=== PATIENT | male | born 1965 | race Caucasian/White ===

== ENCOUNTER 2016-07-01 19:54 | Inpatient (IN) | payer MEDICAID ==
[~2016-07-01] VITALS: Ht 180.3 cm; Wt 125.0 kg
[~2016-07-01 19:54] MED LIST: ADVAIR HFA [SP]12 GM INH; AMBIEN10 MG PO; ATIVAN1 MG PO; CRESTOR20 MG PO; FENOGLIDE40 MG PO; GLUCOPHAGE500 MG; HUMALOG 30100 UNITS/ SC; HYDROCHLOROTHIA25 MG PO; IPRAT-ALBUT 0.5-3 ML UPD; LISINOPRIL-HCTZ1 T13 PO; METFORMIN HCL500 M1 PO; NAPROSYN500 MG PO; NICODERM C1 PATCH .1 TRANSDERM; PREDNISONE20 MG PO; PRINIVIL20 MG PO; STERAPRED 5MG 125 MG PO; SYMBICORT 16010.2 GM INH; TAMIFLU75 MG PO; TRICOR48 MG PO; TUDORZA PRESS400 MCG INH; VENTOLIN HFA18 GM INH; ZOLOFT100 MG PO
[2016-07-01 20:37] LABS: BASOPHILS 0.5 % (0.0-2.0); EOSINOPHILS 5.4 % (0-7); HEMATOCRIT 46.8 % (42.0-54.0); HEMOGLOBIN 15.8 g/dL (13.5-17.5); IMMATURE GRANULOCYTES 0.3 % (0-5); LYMPHOCYTES 28.1 % (15-50); MCH 34.7 pg (26.0-34.0); MCHC 33.8 g/dL (31.0-37.0); MCV 102.9 fL (80.0-100.0); MONOCYTES 8.2 % (2-11); NEUTROPHILS 57.5 % (40-80); PLATELET COUNT 220 10x3/uL (130-400); RBC 4.55 10x6/uL (4.20-6.10); WBC 7.8 10x3/uL (4.8-10.8)
[2016-07-01 20:51] LABS: ALBUMIN 3.6 g/dL (3.4-5.0); ALKALINE PHOSPHATASE 70 U/L (46-116); ALT (SGPT) 35 U/L (10-68); BILIRUBIN - TOTAL 0.24 mg/dL (0.2-1.3); CALC OSMOLALITY 277 mosm/kg (275-300); CALCIUM 9.1 mg/dL (8.5-10.1); CARBON DIOXIDE 27.4 mmol/L (21.0-32.0); CHLORIDE - SERUM 101 mmol/L (98-107); CREATININE - SERUM 0.8 mg/dL (0.6-1.3); GLUCOSE 133 mg/dL (74-106); PROTEIN - SERUM 6.8 g/dL (6.4-8.2); SODIUM 139 mmol/L (136-145); UREA NITROGEN 6 mg/dL (7-18); eGFR NON AFRICAN AMERICAN > 90 mL/min (90-120)
[2016-07-01 20:58] LABS: CREATINE KINASE 85 UL (21-232); PRO BNP 63 pg/mL (0-125)
--- NOTE | 2016-07-02 01:20 | NUR ---
RECEIVED PT TO ROOM 2111 FROM ER WITH BIPAP ON HAVING DYSPNEA RT WITH PT AT THIS TIME SKIN W/D COLOR WNL SALINE LOCK INTAct TO LAC WITH 18 GA IV CATHETER SITE FREE FROM REDNESS OR EDEMA OCCLUSIVE DRSG INTACT WIILLCONTINUE TO MONITOR
[2016-07-02 01:47] VITALS: BMI 38.8
[2016-07-02 04:00] VITALS: BP 124/90
--- NOTE | 2016-07-02 07:00 | NUR ---
Pt. was received at the beginning of this shift in bed with eyes closed and bi-pap on. Stable condition observed. Left forearm IV patent with 0.9% NS infusing via pump at 100ml's/hr. Call light in reach. Will be monitoring him and assisting prn with adl's. No distress found.
[2016-07-02 08:00] VITALS: BP 151/97
[2016-07-02 12:00] VITALS: BP 137/96; BP 153/112
[2016-07-02 12:45] VITALS: Ht 180.3 cm; Wt 125.0 kg
[2016-07-02 16:00] VITALS: BP 145/89
--- NOTE | 2016-07-02 17:17 | NUR ---
Patient Name: LEOBARDO MEJIA Admission Status: Elective Accout number: [id number] Admission Date: 07-01-2016 : 1965 Admission Diagnosis: Attending: DIANE Current LOS: 1 Anticipated DC Date: Planned Disposition: Home Primary Insurance: MEDICAID [place] Discharge Planning Comments: * Is the patient Alert and Oriented? Yes 0 * How many steps to enter\\exit or inside your home? 1 0 * PCP DR. LIBERTAD GARRISON [facility] [facility] 0 * Pharmacy BUDGET 0 * Preadmission Environment Home with Family 0 * ADLs Independent 0 * Equipment Nebulizer Oxygen 0 * Other Equipment HOME AND PORTABLE OXYGEN [facility] - MEDICAL EQUIPMENT PROVIDER 0 * List name and contact numbers for known caregivers / representatives who currently or will assist patient after discharge: NIR MEJIA, SPOUSE, 0 * Community resources currently utilized None 0 * Please name any agencies selected above. NONE 0 * Additional services required to return to the preadmission environment? No 0 * Can the patient safely return to the preadmission environment? Yes 0 * Has this patient been hospitalized within the prior 30 days at any hospital? No 0 CM RECEIVED CALL FROM PT'S REQUESTING CM HAVE THE DOCTOR ORDER HOME HEALTH PT NEEDS HELP CLEANING THE HOUSE AND DOING THE LAUNDRY. CM EXPLAINED PURPOSE OF HOME HEALTH SERVICES AND INFORMED SPOUSE THAT CM WOULD MEET WITH PT TODAY. CM MET WITH PT IN ROOM TO DISCUSS DISCHARGE PLANNING AND NEEDS. PT REPORTS LIVING AT HOME INDEPENDENTLY WITH HIS SPOUSE. PT HAS HOME AND [place] OXYGEN WELL A NEBULIZER FROM [facility] AND DIABETIC SHOES FROM [employer]. PT HAS NO OUTSIDE SERVICES ASSISTING IN THE HOME. CM DISCUSSED AVAILABILITY OF HOME HEALTH, REHAB SERVICES AND MEDICAL EQUIPMENT. PT ASKED ABOUT HOME HEALTH FOR SEASONAL DRIVER SERVICES. CM EXPLAINED SKILLED CARE PROVIDED BY HOME HEALTH WELL THE POSSIBILITY OF AN AIDE TO ASSIST PT WITH BATHING ONCE WEEKLY. PT REPORTS HE IS ABLE TO MANAGE HIS OWN MEDICATIONS, DOES NOT NEED PHYSICAL THERAPY AND CAN BATH HIMSELF. PT REPORTS HE HAD PERSONAL CARE WITH "[facility]" BUT HIS PRIMARY DOCTOR WOULD NOT SIGN FOR IT ANY LONGER. CM EXPLAINED THAT PT WOULD REQUIRE A PRIMARY CARE DOCTOR THAT WOULD CERTIFY THE NEED FOR PERSONAL CARE FOR IT TO BE PROVIDED BY MEDICAID. PT WILL ATTEMPT TO FIND ANOTHER DOCTOR, HE HAS ALSO BEEN FIRED BY DR. RECINOS IN [place]. PT REPORTS HIS SPOUSE WILL PICK HIM UP FOR DISCHARGE HOME. PT PLANS TO DISCHARGE HOME WITH SPOUSE, DENIES NEED FOR HOME HEALTH, WANTS HOME PERSONAL CARE BUT HIS PRIMARY DOCTOR WILL NOT SIGN ORDER TO CERTIFY NEED FOR THE SERVICE. CM TO FOLLOW AND ASSIST NEEDED. Line Construction Superintendent: Javan Ro
--- NOTE | 2016-07-02 17:44 | NUR ---
Pt. has had an uneventful day. Pt. up ad ben to bathroom. No signs of any discomfort or distress. Continuing to observe.
--- NOTE | 2016-07-02 19:35 | NUR ---
RECEIVED REPORT, PT HAS BIPAP ON, IV IS OUT, ASNANSGI-90-UJ, DENIES ANY NEEDS, CALL LIGHT IN REACH, BED IS LOW, SRX2, WILL CONTINUE TO MONITOR
[2016-07-02 21:01] VITALS: BP 126/74
--- NOTE | 2016-07-02 23:59 | NUR ---
NO CHANGES NOTED IN ASSESSMENT. NO NEEDS VOICED. CALL LIGHT WITHIN REACH. WILL CONT TO MONITOR.
[2016-07-03 01:01] VITALS: BP 122/65
--- NOTE | 2016-07-03 04:29 | NUR ---
ASSESSMENT COMPLETE, CALL LIGHT IN REACH, BED IS LOW, SRX2
[2016-07-03 04:57] VITALS: BP 147/88
[2016-07-03 05:15] LABS: BASOPHILS 0 % (0.0-2.0); EOSINOPHILS 0 % (0-7); HEMATOCRIT 46.8 % (42.0-54.0); HEMOGLOBIN 15.8 g/dL (13.5-17.5); IMMATURE GRANULOCYTES 0.4 % (0-5); LYMPHOCYTES 4.9 % (15-50); MCH 35.1 pg (26.0-34.0); MCHC 33.8 g/dL (31.0-37.0); NEUTROPHILS 91.7 % (40-80); PLATELET COUNT 234 10x3/uL (130-400); RDW 12.8 % (11.5-14.5); WBC 14.1 10x3/uL (4.8-10.8)
[2016-07-03 05:33] LABS: CALCIUM 8.9 mg/dL (8.5-10.1); CARBON DIOXIDE 30.2 mmol/L (21.0-32.0); CHLORIDE - SERUM 99 mmol/L (98-107); CREATININE - SERUM 0.8 mg/dL (0.6-1.3); POTASSIUM - SERUM 4.2 mmol/L (3.5-5.1); SODIUM 136 mmol/L (136-145); eGFR NON AFRICAN AMERICAN > 90 mL/min (90-120)
[2016-07-03 05:34] LABS: CALC OSMOLALITY 278 mosm/kg (275-300); GLUCOSE 204 mg/dL (74-106); UREA NITROGEN 15 mg/dL (7-18)
[2016-07-03 08:06] VITALS: BP 141/86
[2016-07-03 12:00] VITALS: BP 130/84
[2016-07-03 15:33] VITALS: BP 132/85
--- NOTE | 2016-07-03 15:38 | NUR ---
GLUCOSE CHECKED AND READING 160 PT REFUSED INSULIN WILL MONITOR
--- NOTE | 2016-07-03 15:42 | NUR ---
PT LAYING IN BED NO DISTRESS OBSERVED CALL LIGHT IN REACH SR X2 GLUCOSE LEVELS CHECKED AND PT REFUSED INSULIN READING 160 RESPERATION EVEN AND UNLBOARED ON BIPAP WILL MONITOR
--- NOTE | 2016-07-03 17:08 | NUR ---
PT LAYING IN BED NO DISTRESS OBSERVED BIPAP ON. BED LOW AND LOCKED CALL LIGHT IN REACH SRX2 WILL MONITOR
--- NOTE | 2016-07-03 19:30 | NUR ---
RECEIVED PT SITTING UP IN BED WATCHING TV BIPAP ON DENIES ANY NEEDS OR DISCOMFORT AT THIS TIME WILL CONTINUE TO MONITOR
[2016-07-03 20:00] VITALS: BP 146/84; BP 151/91
--- NOTE | 2016-07-03 22:33 | NUR ---
FSBS 281 HUMALOG 10 UNITS GIVEN SQ LT ARM
[2016-07-04] VITALS: BP 111/63
[2016-07-04 04:00] VITALS: BP 148/96
[2016-07-04 05:33] LABS: BASOPHILS 0 % (0.0-2.0); EOSINOPHILS 0 % (0-7); HEMATOCRIT 45.6 % (42.0-54.0); HEMOGLOBIN 14.9 g/dL (13.5-17.5); IMMATURE GRANULOCYTES 0.3 % (0-5); LYMPHOCYTES 5.9 % (15-50); MCHC 32.7 g/dL (31.0-37.0); MCV 104.1 fL (80.0-100.0); MEAN PLATELET VOLUME 10.4 fL (7.4-10.4); MONOCYTES 5.1 % (2-11); NEUTROPHILS 88.7 % (40-80); PLATELET COUNT 239 10x3/uL (130-400); RBC 4.38 10x6/uL (4.20-6.10); RDW 12.6 % (11.5-14.5); WBC 13.6 10x3/uL (4.8-10.8)
[2016-07-04 05:48] LABS: CALC OSMOLALITY 276 mosm/kg (275-300); CALCIUM 9.3 mg/dL (8.5-10.1); CARBON DIOXIDE 29.8 mmol/L (21.0-32.0); CHLORIDE - SERUM 97 mmol/L (98-107); CREATININE - SERUM 0.8 mg/dL (0.6-1.3); GLUCOSE 206 mg/dL (74-106); POTASSIUM - SERUM 4.4 mmol/L (3.5-5.1); SODIUM 135 mmol/L (136-145); UREA NITROGEN 16 mg/dL (7-18); eGFR NON AFRICAN AMERICAN > 90 mL/min (90-120)
--- NOTE | 2016-07-04 06:05 | NUR ---
FSBS 206 PER LAB HUMALOG 8 UNITS GIVEN SQ LT ARM
[2016-07-04 07:00] VITALS: BP 147/87
[2016-07-04 11:56] VITALS: BP 144/93
[2016-07-04 16:00] VITALS: BP 130/82
--- NOTE | 2016-07-04 16:35 | NUR ---
PT SITTING UP IN BED AND AMBULATING IN HALLS WITH NO O2 ON PT RETURNS TO ROOM AND PUTS BIPAP ON RESPERATIONS ARE EVEN AND UNLABORED WITH NO DISTRESS OBSERVED CALL LIGHT IN REACH SRX2 BED LOW AND LOCKED WILL MONITOR
[2016-07-04 20:00] VITALS: BP 148/91
--- NOTE | 2016-07-04 20:49 | NUR ---
REC'D.AMB. IN HALLWAY O2 OFF SATS 98%.NO RESP. DIFFICULTY OBSERVED. WILL CONTINUE TO MONITOR FOR ANY CHGES. IN RESP. STATUS AND FOLLOW CURRENT PLAN OF CARE.
[2016-07-05] VITALS: BP 134/91
--- NOTE | 2016-07-05 00:22 | NUR ---
ACCOUNTING ASSISTANT AT BEDSIDE FOR VS. NEEDS ADDRESSED, CALL LIGHT IN REACH. WILL CONT TO MONITOR.
[2016-07-05 04:00] VITALS: BP 137/80
[2016-07-05 05:05] LABS: BASOPHILS 0 % (0.0-2.0); EOSINOPHILS 0 % (0-7); HEMATOCRIT 46.7 % (42.0-54.0); HEMOGLOBIN 15.6 g/dL (13.5-17.5); IMMATURE GRANULOCYTES 0.4 % (0-5); MCH 34.4 pg (26.0-34.0); MCHC 33.4 g/dL (31.0-37.0); MCV 103.1 fL (80.0-100.0); MEAN PLATELET VOLUME 10.5 fL (7.4-10.4); MONOCYTES 6.9 % (2-11); NEUTROPHILS 84.7 % (40-80); PLATELET COUNT 255 10x3/uL (130-400); RBC 4.53 10x6/uL (4.20-6.10); RDW 12.5 % (11.5-14.5); WBC 11.8 10x3/uL (4.8-10.8)
[2016-07-05 05:14] LABS: CALC OSMOLALITY 277 mosm/kg (275-300); CALCIUM 9.6 mg/dL (8.5-10.1); CARBON DIOXIDE 31.6 mmol/L (21.0-32.0); CHLORIDE - SERUM 96 mmol/L (98-107); CREATININE - SERUM 0.7 mg/dL (0.6-1.3); GLUCOSE 170 mg/dL (74-106); POTASSIUM - SERUM 4.8 mmol/L (3.5-5.1); SODIUM 136 mmol/L (136-145); UREA NITROGEN 18 mg/dL (7-18); eGFR NON AFRICAN AMERICAN > 90 mL/min (90-120)
--- NOTE | 2016-07-05 07:34 | NUR ---
RECEIVED PT REPORT. NO OTHER NEEDS AT THIS TIME. WILL CONTINUE TO MONITOR.
[2016-07-05 07:42] VITALS: BP 135/89
[2016-07-05] MEDS ORDERED: LEVAQUIN750 MG PO (08:13)
[2016-07-05] MEDS ORDERED: SINGULAIR10 MG PO (08:13)
[2016-07-05] MEDS ORDERED: MEDROL DOSE PACK4 MG PO (08:14)
--- NOTE | 2016-07-05 10:11 | NUR ---
Patient Name: LEOBARDO MEJIA Encounter No: [id number] : 1965 Primary Insurance: MEDICAID [facility] DC Date: 07-05-2016 Planned Disposition: Home with Home Health External Planned Provider: [facility] DCP follow-up note: CM RECEIVED DISCHARGE ORDER WITH HOME HEALTH ORDER. CM MET WITH PT IN ROOM, PT IS GLAD TO HAVE HOME HEALTH AND CALLED HIS ON THE PHONE TO SPEAK TO CM . PT'S SPOUSE ASKED FOR "[facility]" FOR HOME HEALTH. CM EXPLAINED THAT SHE WAS REFERRING TO A PERSONAL CARE AGENCY AND NOT HOME HEALTH, CM DISCUSSED DIFFERENCE BETWEEN HOME HEALTH AND PERSONAL CARE. PT AND SPOUSE REQUESTED [facility] FOR HOME HEALTH SERVICES AND WILL ACCEPT IF HE QUALIFIES. PT SIGNED CHOICE LETTER. PT REPORTS HAVING A FRIEND TO PICK HIM UP AT ABOUT NOON FOR TRANSPORT HOME TODAY. PT DENIES FURTHER DISCHARGE NEEDS. CM CALLED [facility], , SPOKE TO DARBY WHO WILL CONTACT PT'S PRIMARY CARE DOCTOR TO SEE IF PCP WILL SIGN ORDERS FOR HEALTH AND ADMIT PT FOR HOME HEALTH IF APPROPRIATE. CM FAXED HOME HEALTH REFERRAL AND DISCHARGE INFORMATION TO [facility] AT [phone]. Javan Ro, CASE MANAGEMENT
--- NOTE | 2016-07-30 13:49 | CN ---
PATIENT NAME:LEOBARDO MEJIA MEDICAL RECORD: [id number] : [birth year] LOCATION:D. D.2112 ADMIT DATE: 07/01/16 ACCOUNT: [id number] CONSULTING PHYSICIAN: ANNA SPEARS MD REFERRING PHYSICIAN: GUILLERMINA SPEARS MD DATE OF CONSULTATION: 07/02/2016 CONSULT REQUESTING PHYSICIAN: Guillermina Spears MD. REASON FOR CONSULTATION: Acute exacerbation of chronic obstructive pulmonary disease, acute hypoxic respiratory failure. HISTORY OF PRESENT ILLNESS: Mr. Mejia is a 50-year-old gentleman who has sinusitis a few days ago. He saw his government affairs specialist in [place], he prescribed him some antibiotic, but according to the patient, he was not getting any better, he has worsening shortness of breath and start wheezing. The patient came into the ER last night, having generalized body aches and pain, his cough not much yellow colored sputum production. He was also persistently wheezing. REVIEW OF SYSTEMS: CONSTITUTIONAL: He has a fever and chills. HEENT: He has sinus congestion. RESPIRATORY: As in history of present illness. CARDIOVASCULAR: No chest pain. He does have some palpitation. GASTROINTESTINAL: Negative. GENITOURINARY: Negative. Other review of the systems is negative. PAST MEDICAL HISTORY: 1. COPD. He is seeing a government affairs specialist at [facility]. 2. Hypertension. 3. Associated asthma. 4. Diabetes mellitus. 5. History of seizure disorder. PAST SURGICAL HISTORY: 1. He had T&A. 2. Left ankle fusion surgery. ALLERGIES: HE IS ALLERGIC TO AMITRIPTYLINE, ANTABUSE, HALDOL. PRESENT MEDICATIONS: On A+ [employer] is reviewed. PERSONAL AND SOCIAL HISTORY: The patient still continues to smoke almost a pack a day. He is a nondrinker. FAMILY HISTORY: Significant for cardiovascular disease and cancer. PHYSICAL EXAMINATION: GENERAL: Now, the patient is lying comfortably. He is not in acute distress. He is wearing BiPAP machine. VITAL SIGNS: The blood pressure is 153/112, respiration is 18, temperature 98.2, SPO2 is 98% on 40% BiPAP. HEENT: Conjunctivae are pink. Sclerae nonicteric. CONSULT REPORT [id number] LEOBARDO MEJIA NECK: Supple. No JVD. CHEST: Excursion is minimal on both sides. There are wheeze on forceful expiration. HEART: Rhythm regular, normal sound, no murmur. ABDOMEN: Soft, bowel sounds present. No hepatosplenomegaly. RECTAL: Deferred. EXTREMITIES: No cyanosis, no clubbing, no pedal edema. SKIN: Warm, normal turgor. CENTRAL NERVOUS SYSTEM: The patient is awake and alert. There is no obvious cranial nerve abnormality. The gait was not tested. CHEST RADIOGRAPH: Hyperinflation, there are no acute infiltrates. LABORATORY DATA: CBC: The WBC is 7.8, hemoglobin 15.8, hematocrit 46.8, the platelet count is 220. Chemistry: Sodium 139, potassium 4, BUN is 6, creatinine 0.6. ABG: The pH is 7.37, pCO2 of 47.3, the pO2 is 73, bicarbonate 27.9. IMPRESSION: 1. Acute exacerbation of chronic obstructive pulmonary disease. 2. Tracheobronchitis. 3. Acute hypoxic respiratory failure. 4. Tobacco dependence syndrome. 5. Hypertension. 6. Diabetes mellitus type 2. 7. Acute sinusitis. RECOMMENDATION: Continue Levaquin. I will adjust the dose of methylprednisolone, start Brovana and budesonide nebulizer, albuterol/ipratropium nebulizer. Start on Singulair 10 mg a day. The patient has workup for his COPD by his government affairs specialist in [place]. Dr. Spears, once again thank you for involving me in the care of Mr. Mejia. TRANSINT:[id number] Voice Confirmation ID: [id number] DOCUMENT ID: [id number] ANNA SPEARS MD at 1349 CC: GUILLERMINA SPEARS MD [id number] DICTATION DATE: 07/02/161521 HAND BINDER STRIPPER: 07/02/162057 DIS IN 07/05/16 [address] [place] [address]
== END 2016-07-05 10:25 | disposition home health service (06) | DRG 189 ==
LOC: D.ER 19:54 → D.M2 22:44
PROVIDERS: Emergency Medicine; Internal Medicine Pulmonary Disease; ADMIT Family Medicine
PROC: 5A09457 Assistance with Respiratory Ventilation, 24-96 Consecutive Hours, Continuous Positive Airway Pressure (ICD-10-PCS; principal; 2016-07-01)
DX: J96.01 Acute respiratory failure with hypoxia (principal); J44.1 Chronic obstructive pulmonary disease with (acute) exacerbation; F17.200 Nicotine dependence, unspecified, uncomplicated; J45.909 Unspecified asthma, uncomplicated; E11.9 Type 2 diabetes mellitus without complications; Z79.4 Long term (current) use of insulin; G40.909 Epilepsy, unspecified, not intractable, without status epilepticus; I10 Essential (primary) hypertension; J32.9 Chronic sinusitis, unspecified; F41.9 Anxiety disorder, unspecified

== ENCOUNTER 2018-02-12 14:24 | Inpatient (IN) | payer MEDICAID ==
[~2018-02-12] VITALS: Ht 180.3 cm; Wt 129.5 kg
--- NOTE | ~2018-02-12 | MORECARE ---
CASE MANAGEMENT DISCHARGE SUMMARY PATIENT: LEOBARDO MEJIA UNIT: [id number] ADM DATE: 02/12/18 AGE: 52 : [birth year] SEX: M ROOM/BED: D.2236 AUTHOR: SHERIE RUELAS PHYSICIAN: REFERRING PHYSICIAN: LNEI MANSFIELD MD DATE OF SERVICE: 02/17/18 Discharge Plan Patient Name: LEOBARDO MEJIA Facility: [facility] : 1965 Planned Disposition: Home Anticipated Discharge Date: Discharge Date: 02/16/2018 Expected LOS: 0 Initial Reviewer: [email or web address] Initial Review Date: 02/14/2018 Generated: 02/17/18 5:57 pm Comments DCP- Discharge Planning Updated by [email or web address]: Adrienne Mariano on 02/16/18 11:[address] Received orders for discharge. The patient has already left the room. Patient's nurse Kimberly said he has been gone awhile and states "I think he just left without telling anyone." I called [phone] and left a message that he [place] [facility] [address] His nurse has left a message as well. DCP- Discharge Planning Updated by [email or web address]: Adrienne Mariano on 02/14/18 9:[address] Patient Name: LEOBARDO MEJIA Admission Status: ER Accout number: [id number] Admission Date: 02-12-2018 : 1965 Admission Diagnosis: Attending: LENI MANSFIELD Current LOS: 2 Anticipated DC Date: Planned Disposition: Home Primary Insurance: MEDICAID [place] Discharge Planning Comments: CM met with patient to discuss discharge planning, he is alone in the room. States he is independent with all ADL's and IADL's. He states he lives with his that has been diagnosed recently with stage 3 cancer. States they have a appraiser personal property from [facility] [employer] that is supposed to come in 28 hours a month. States they are not coming that often. I called [facility] and spoke with Cesilia per the patient's request. She states that he and the are getting maximum amount allowed, which is 14 hours per person. Patient states that one of the aides will pick him up at discharge. I informed him of Home health services available and he declines at this time. CM will continue to follow and assist with discharge planning/needs. Heel Nailing Machine Operator: Adrienne Mariano DCPIA - Discharge Planning Initial Assessment Updated by [email or web address]: Adrienne Mariano on 02/14/18 10:34 am * Is the patient Alert and Oriented? Yes * How many steps to enter\\exit or inside your home? Ramp/0 * PCP [facility] * Pharmacy [facility] [address] * Preadmission Environment Home with Family * ADLs Independent * Equipment Nebulizer Oxygen * Other Equipment Portable oxygen DME is [facility] * List name and contact numbers for known caregivers / representatives who currently or will assist patient after discharge: Daniella Mejia - - [phone] * Verbal permission to speak to the caregivers and representatives has been obtained from the patient. Yes * Community resources currently utilized [facility] * Please name any agencies selected above. [facility] * Additional services required to return to the preadmission environment? No * Can the patient safely return to the preadmission environment? Yes * Has this patient been hospitalized within the prior 30 days at any hospital? No Last DP export: 02/16/18 11:33 Patient Name: ROBERTOLEOBARDO Page [id number] at 1657 All edits/amendments must be made on the electronic document DICTATION DATE: 02/17/181655 LENS EDGER: TIM 02/17/181655 RPT#: [id number] DC DATE:02/16/18 STATUS: DIS IN [facility] [address] [place] [address] END OF REPORT
[~2018-02-12 14:24] MED LIST changes: +LEVAQUIN750 MG PO; +MEDROL DOSE PACK4 MG PO; +SINGULAIR10 MG PO
[2018-02-12] MEDS ORDERED: BUSPIRONE HCL30 MG PO (14:35)
[2018-02-12] MEDS ORDERED: COMBIVENT RESPIM4 GM INH (14:36)
[2018-02-12 15:11] LABS: BASOPHILS 0.5 % (0-2); EOSINOPHILS 3.7 % (0-7); HEMATOCRIT 53.4 % (42.0-54.0); HEMOGLOBIN 18.7 g/dL (13.5-17.5); IMMATURE GRANULOCYTES 0.2 % (0-5); LYMPHOCYTES 20.3 % (15-50); MCH 36.5 pg (26.0-34.0); MCV 104.3 fL (80.0-100.0); MEAN PLATELET VOLUME 10.3 fL (7.4-10.4); MONOCYTES 10.2 % (2-11); NEUTROPHILS 65.1 % (40-80); PLATELET COUNT 217 10x3/uL (130-400); RBC 5.12 10x6/uL (4.20-6.10); WBC 8.3 10x3/uL (4.8-10.8)
[2018-02-12 15:17] LABS: APTT 30.9 SECONDS (22.8-39.4); INR 0.99 (0.85-1.17); PROTIME 12.7 SECONDS (11.6-15.0)
[2018-02-12 15:18] LABS: D-DIMER-QUANTITATIVE < 0.27 ug/mLFEU (0.20-0.54)
[2018-02-12 16:02] LABS: ALBUMIN 3.5 g/dL (3.4-5.0); ALKALINE PHOSPHATASE 83 U/L (46-116); ALT (SGPT) 32 U/L (10-68); BILIRUBIN - TOTAL 0.34 mg/dL (0.2-1.3); CALC OSMOLALITY 278 mosm/kg (275-300); CALCIUM 9.3 mg/dL (8.5-10.1); CARBON DIOXIDE 26.7 mmol/L (21.0-32.0); CHLORIDE - SERUM 101 mmol/L (98-107); GLUCOSE 137 mg/dL (74-106); POTASSIUM - SERUM 4.4 mmol/L (3.5-5.1); PROTEIN - SERUM 6.7 g/dL (6.4-8.2); SODIUM 139 mmol/L (136-145); UREA NITROGEN 10 mg/dL (7-18); eGFR NON AFRICAN AMERICAN 84 mL/min (90-120)
[2018-02-12 16:14] LABS: CKMB 1.3 U/L (0.0-3.6); CREATINE KINASE 84 UL (21-232); PRO BNP 46 pg/mL (0-125)
[2018-02-12 16:18] LABS: TROPONIN-I < 0.017 ng/mL (0.000-0.060)
[2018-02-12] MEDS ORDERED: PROAIR INH (18:33)
[2018-02-12 18:58] VITALS: BP 129/79; Ht 180.3 cm; Wt 129.5 kg
[2018-02-13] VITALS: BP 11/74
[2018-02-13 06:04] LABS: BASOPHILS 0 % (0-2); EOSINOPHILS 0 % (0-7); HEMATOCRIT 51.9 % (42.0-54.0); HEMOGLOBIN 18.1 g/dL (13.5-17.5); IMMATURE GRANULOCYTES 0.1 % (0-5); LYMPHOCYTES 6.7 % (15-50); MCH 36.5 pg (26.0-34.0); MCHC 34.9 g/dL (31.0-37.0); MCV 104.6 fL (80.0-100.0); MEAN PLATELET VOLUME 10.6 fL (7.4-10.4); MONOCYTES 1.4 % (2-11); NEUTROPHILS 91.8 % (40-80); PLATELET COUNT 211 10x3/uL (130-400); RBC 4.96 10x6/uL (4.20-6.10); RDW 12.9 % (11.5-14.5); WBC 7.8 10x3/uL (4.8-10.8)
[2018-02-13 06:05] VITALS: BP 124/76
[2018-02-13 06:11] LABS: CALC OSMOLALITY 288 mosm/kg (275-300); CALCIUM 9.1 mg/dL (8.5-10.1); CARBON DIOXIDE 26.5 mmol/L (21.0-32.0); CHLORIDE - SERUM 100 mmol/L (98-107); CREATININE - SERUM 1.1 mg/dL (0.6-1.3); POTASSIUM - SERUM 4.6 mmol/L (3.5-5.1); SODIUM 137 mmol/L (136-145); UREA NITROGEN 11 mg/dL (7-18); eGFR NON AFRICAN AMERICAN 75 mL/min (90-120)
[2018-02-13 06:12] LABS: GLUCOSE 381 mg/dL (74-106)
[2018-02-13 08:38] VITALS: BP 151/100
[2018-02-13 12:50] VITALS: BP 158/94
[2018-02-13 16:34] VITALS: BP 140/91
[2018-02-13 21:01] VITALS: BP 126/84
[2018-02-14 05:52] VITALS: BP 126/91
[2018-02-14 05:58] LABS: BASOPHILS 0 % (0-2); EOSINOPHILS 0 % (0-7); HEMATOCRIT 48.3 % (42.0-54.0); HEMOGLOBIN 16.7 g/dL (13.5-17.5); IMMATURE GRANULOCYTES 0.3 % (0-5); LYMPHOCYTES 5.4 % (15-50); MCH 36.3 pg (26.0-34.0); MCHC 34.6 g/dL (31.0-37.0); MEAN PLATELET VOLUME 10.7 fL (7.4-10.4); NEUTROPHILS 91.3 % (40-80); PLATELET COUNT 233 10x3/uL (130-400)
[2018-02-14 06:16] LABS: WBC 10.9 10x3/uL (4.8-10.8)
[2018-02-14 06:35] LABS: CALCIUM 9.3 mg/dL (8.5-10.1); CARBON DIOXIDE 27.5 mmol/L (21.0-32.0); CHLORIDE - SERUM 101 mmol/L (98-107); POTASSIUM - SERUM 4.2 mmol/L (3.5-5.1); SODIUM 137 mmol/L (136-145)
[2018-02-14 06:37] LABS: CALC OSMOLALITY 285 mosm/kg (275-300); CREATININE - SERUM 0.8 mg/dL (0.6-1.3); GLUCOSE 295 mg/dL (74-106); UREA NITROGEN 15 mg/dL (7-18); eGFR NON AFRICAN AMERICAN > 90 mL/min (90-120)
[2018-02-14 09:44] VITALS: BP 163/93
[2018-02-14 14:44] VITALS: BP 121/85
[2018-02-14 21:20] VITALS: BP 145/91
[2018-02-15 05:00] LABS: BASOPHILS 0 % (0-2); EOSINOPHILS 0 % (0-7); HEMOGLOBIN 15.7 g/dL (13.5-17.5); IMMATURE GRANULOCYTES 0.3 % (0-5); LYMPHOCYTES 6.7 % (15-50); MCH 35.9 pg (26.0-34.0); MCHC 34.1 g/dL (31.0-37.0); MCV 105.3 fL (80.0-100.0); MEAN PLATELET VOLUME 10.8 fL (7.4-10.4); MONOCYTES 6.2 % (2-11); NEUTROPHILS 86.8 % (40-80); PLATELET COUNT 234 10x3/uL (130-400); RBC 4.37 10x6/uL (4.20-6.10); RDW 12.9 % (11.5-14.5); WBC 9.5 10x3/uL (4.8-10.8)
[2018-02-15 05:27] LABS: ALBUMIN 3.1 g/dL (3.4-5.0); ALKALINE PHOSPHATASE 61 U/L (46-116); ALT (SGPT) 21 U/L (10-68); BILIRUBIN - TOTAL 0.23 mg/dL (0.2-1.3); CALC OSMOLALITY 283 mosm/kg (275-300); CALCIUM 9.2 mg/dL (8.5-10.1); CARBON DIOXIDE 28.3 mmol/L (21.0-32.0); CHLORIDE - SERUM 101 mmol/L (98-107); CREATININE - SERUM 0.8 mg/dL (0.6-1.3); POTASSIUM - SERUM 4.1 mmol/L (3.5-5.1); PROTEIN - SERUM 6.2 g/dL (6.4-8.2); SODIUM 138 mmol/L (136-145); UREA NITROGEN 16 mg/dL (7-18); eGFR NON AFRICAN AMERICAN > 90 mL/min (90-120)
[2018-02-15 05:47] LABS: GLUCOSE 223 mg/dL (74-106)
[2018-02-15 06:26] VITALS: BP 119/62
[2018-02-15 09:19] VITALS: BP 147/95
[2018-02-15 10:22] LABS: IMMUNOGLOBULIN A 181 mg/dL (90-386); IMMUNOGLOBULIN G 498 mg/dL (700-1600)
[2018-02-15 11:36] VITALS: BP 166/95
[2018-02-15 15:30] VITALS: BP 137/89
[2018-02-15 20:00] VITALS: BP 129/82
[2018-02-16 05:03] LABS: BASOPHILS 0.1 % (0-2); EOSINOPHILS 0.2 % (0-7); HEMATOCRIT 46.8 % (42.0-54.0); IMMATURE GRANULOCYTES 0.6 % (0-5); LYMPHOCYTES 20.6 % (15-50); MCHC 34.2 g/dL (31.0-37.0); MCV 105.4 fL (80.0-100.0); MEAN PLATELET VOLUME 10.5 fL (7.4-10.4); MONOCYTES 11.2 % (2-11); NEUTROPHILS 67.3 % (40-80); PLATELET COUNT 207 10x3/uL (130-400); RBC 4.44 10x6/uL (4.20-6.10); RDW 12.9 % (11.5-14.5); WBC 8.9 10x3/uL (4.8-10.8)
[2018-02-16 05:18] LABS: CALC OSMOLALITY 280 mosm/kg (275-300); CARBON DIOXIDE 32.8 mmol/L (21.0-32.0); CHLORIDE - SERUM 99 mmol/L (98-107); CREATININE - SERUM 0.8 mg/dL (0.6-1.3); POTASSIUM - SERUM 4.1 mmol/L (3.5-5.1); SODIUM 137 mmol/L (136-145); UREA NITROGEN 20 mg/dL (7-18); eGFR NON AFRICAN AMERICAN > 90 mL/min (90-120)
[2018-02-16 05:26] LABS: GLUCOSE 164 mg/dL (74-106)
[2018-02-16 05:28] VITALS: BP 100/61
[2018-02-16 10:20] VITALS: BP 145/82
[2018-02-16] MEDS ORDERED: BENZONATATE200 MG PO (11:39)
[2018-02-16] MEDS ORDERED: KLONOPIN1 MG PO (11:39)
[2018-02-16] MEDS ORDERED: Nicoderm [PBKC] TRANSDERM (11:39)
[2018-02-16] MEDS ORDERED: PREDNISONE10 MG PO (11:52)
[2018-02-16] MEDS ORDERED: LEVAQUIN750 MG PO (11:52)
[2018-02-17 03:12] LABS: IMMUNOGLOBULIN E 248 IU/mL (0-100)
== END 2018-02-16 12:35 | disposition left against medical advice (07) | DRG 189 ==
LOC: D.ER 14:24 → D.MS 17:34
PROVIDERS: Emergency Medicine; Family Medicine; Internal Medicine Pulmonary Disease
DX: J96.01 Acute respiratory failure with hypoxia (principal); J44.1 Chronic obstructive pulmonary disease with (acute) exacerbation; E87.2 Acidosis; J44.0 Chronic obstructive pulmonary disease with (acute) lower respiratory infection; J20.9 Acute bronchitis, unspecified; I10 Essential (primary) hypertension; F41.9 Anxiety disorder, unspecified; E11.9 Type 2 diabetes mellitus without complications; E78.5 Hyperlipidemia, unspecified; G47.33 Obstructive sleep apnea (adult) (pediatric); Z91.19 Patient's noncompliance with other medical treatment and regimen; D75.1 Secondary polycythemia

== ENCOUNTER 2018-04-06 16:41 | Inpatient (IN) | payer MEDICAID ==
[~2018-04-06] VITALS: Ht 180.3 cm; Wt 101.3 kg
--- NOTE | ~2018-04-06 | CN ---
PATIENT NAME:LEOBARDO MEJIA MEDICAL RECORD: [id number] : [birth year] LOCATION:D.M2 D.2114 ADMIT DATE: 04/06/18 ACCOUNT: [id number] CONSULTING PHYSICIAN: ANNA SPEARS MD REFERRING PHYSICIAN: CLIFTON PRADO DO DATE OF CONSULTATION: 04/07/2018 CONSULT REQUESTING PHYSICIAN: Clifton Prado MD REASON FOR CONSULTATION: Acute exacerbation of chronic obstructive pulmonary disease. HISTORY OF PRESENT ILLNESS: Mr. Mejia is a 52-year-old gentleman, very well known to me from previous hospitalizations. The patient was following with a general utility worker at [place]. According to the patient, yesterday he woke up, he feels like he cannot breathe and he was like drowning. He was wheezing. He was coughing without much significant yellow color sputum production. Since yesterday, he is feeling a lot better and the patient wants to go home. REVIEW OF SYSTEMS: As in history of present illness. PAST MEDICAL HISTORY: 1. COPD. The patient is seeing a general utility worker at [facility]. 2. Hypertension. 3. Asthma and COPD overlap syndrome. 4. Diabetes mellitus. 5. History of seizure disorder. PAST SURGICAL HISTORY: 1. T&A. 2. Left knee fusion surgery. ALLERGIES: HE IS ALLERGIC TO AMITRIPTYLINE, ANTABUSE AND HALDOL. MEDICATIONS: UpOut is reviewed. PERSONAL AND SOCIAL HISTORY: Probably he still continues to smoke. He is a nondrinker. FAMILY HISTORY: Noncontributory. PHYSICAL EXAMINATION: GENERAL: Now, the patient is lying comfortably in bed. He is not in acute distress. VITAL SIGNS: The blood pressure is 165/96, pulse is 107, respirations 18, temperature 98.2, SPO2 is 98% on 4 liters nasal cannula. HEENT: Conjunctivae are pink. Sclerae are not icteric. NECK: Supple, no JVD. CHEST: The chest excursion is minimal on both sides. Wheeze on forceful expiration. HEART: Rhythm regular, normal sound, no murmur. ABDOMEN: Soft, bowel sounds present. No hepatosplenomegaly. RECTAL: Deferred. EXTREMITIES: No cyanosis, no clubbing, no pedal edema. CENTRAL NERVOUS SYSTEM: The patient is awake and alert. There are no obvious CONSULT REPORT [id number] LEOBARDO MEJIA cranial nerve abnormality. The gait was not tested. CHEST RADIOGRAPH: Hyperinflation, no acute infiltrate. WBC is 12.2. RECOMMENDATION: 1. Prednisone Dosepak. 2. Doxycycline. The patient was advised to continue his home nebulized medication and inhalers. He will follow up with his general utility worker at [facility]. Dr. Prado, thank you for involving me in the care of Mr. Mejia. TRANSINT:[id number] Voice Confirmation ID: [id number] DOCUMENT ID: [id number] ANNA SPEARS MD CC: [id number] DICTATION DATE: 04/07/18 1611 PBX TECHNICIAN: 04/07/18 2321 DIS IN 04/07/18 [facility] [address] [place] [address]
--- NOTE | ~2018-04-06 | DS ---
PATIENT:LEOBARDO MEJIA :[birth year] MEDICAL RECORD: [id number] DISCHARGE SUMMARY ADMISSION DATE: 04/06/18 DISCHARGE DATE: 04/07/18 ADMISSION DIAGNOSIS: Exacerbation of chronic obstructive pulmonary disease. DISCHARGE DIAGNOSIS: Exacerbation of chronic obstructive pulmonary disease. CONSULTS: Pulmonology, Dr. Alas. HOSPITAL COURSE: The patient was admitted through the Emergency Room with acute shortness of breath and previously had BiPAP at home, was noncompliant with it, and Medicaid quit covering it and was discontinued. He had frequent admissions for COPD exacerbations. He was hypoxic on admission, was started on BiPAP, improved, was also given Solu-Medrol and DuoNebs. Pulmonology was consulted, evaluated the patient and cleared the patient for discharge. Wrote discharge medications. The patient is discharged to home, agreed with discharge, anxious to go home. Discharged in stable and improved condition. PHYSICAL EXAMINATION: VITAL SIGNS ON DISCHARGE: Temperature 98.2, heart rate 95, respirations 18, blood pressure is 139/84, O2 sats 97%. GENERAL: Alert, oriented, no acute distress. HEART: Regular rate and rhythm. LUNGS: Clear, mildly prolonged expiratory phase. Breathing is nonlabored. ABDOMEN: Soft, obese, nontender. Bowel sounds positive. EXTREMITIES: Present times 4. NEUROLOGIC: Intact. DISCHARGE INSTRUCTIONS: The patient is instructed to follow up with his primary care physician or nurse practitioner. Follow up with his steel layer, Dr. Daily. Counseled on the importance of compliance and followup. See chart for further details. TRANSINT:[id number] Voice Confirmation ID: [id number] DOCUMENT ID: [id number] CRISTHIAN PRADO DO at 1045 CC: [id number] DICTATION DATE: 04/07/18 1634 BATTERY INSTALLER: 04/08/18 0706 DIS IN 04/07/18 [id number] [place] [address]
--- NOTE | ~2018-04-06 | HP ---
PATIENT: LEOBARDO MEJIA MEDICAL RECORD: [id number] ACCOUNT: [id number] LOCATION:[address] : [birth year] ADMISSION DATE: 04/06/18 PCP: ELLIOTT JONES [facility] HISTORY AND PHYSICAL EXAMINATION HISTORY OF PRESENT ILLNESS: A 52-year-old male presented to the Emergency Room with shortness of breath. The patient has a history of COPD. He has been on BiPAP in the past. His machine broke and Medicaid picked it up due to perceived noncompliance. His research manager is Dr. Daily. He is noncompliant with clinic followups. He is followed by a nurse practitioner at [facility]. Denies any fever or chills. He reports being short of breath times 1 day. He was given Solu-Medrol and DuoNeb en route, but he has still remained hypoxic upon arrival to the ER with recommended admission to unassigned medicine. PAST MEDICAL HISTORY: Significant for COPD, poor compliance. ALLERGIES: REPORTED AMITRIPTYLINE AND ABUSE HALDOL. CURRENT HOME MEDICATIONS: Listed as Klonopin and prednisone, BuSpar, Combivent inhaler, albuterol inhaler, fenofibrate, and metformin. PAST MEDICAL HISTORY: Reported as seizures, hypertension, COPD, depression, anxiety. REVIEW OF SYSTEMS: GENERAL: No acute change, weight, or appetite. HEENT: No cephalgia, visual changes, tinnitus, epistaxis, or dysphagia. CARDIOVASCULAR: Denies chest pain, denies palpitations. PULMONARY: Acute shortness of breath, feels significantly better this a.m. GASTROINTESTINAL: Denies hematemesis, hematochezia, or melena. GENITOURINARY: Denies dysuria. MUSCULOSKELETAL: No acute changes. ENDOCRINE: Denies polyuria, polydipsia, or polyphagia. PHYSICAL EXAMINATION: VITAL SIGNS: Temp 96.6, blood pressure 129/87, heart rate 92, respirations 20, O2 sats 98% with supplemental oxygen. HEENT: Normocephalic, atraumatic. Eyes: Pupils are equally round and reactive to light and accommodation. Extraocular muscles intact. Conjunctivae not injected. Ears: Canals patent, TMs are intact. Nose: Nares patent without drainage. Throat: No erythema, no exudates. NECK: Supple. No lymphadenopathy, no JVD. HEART: Regular rate and rhythm. No S3, S4, no rub. LUNGS: Clear to auscultation bilaterally, mildly prolonged expiratory phase. Breathing is nonlabored. ABDOMEN: Soft, obese, nontender. Bowel sounds all 4 quadrants. EXTREMITIES: Present times 4. NEUROLOGIC: No appreciable focal deficits. He is a somewhat limited historian. LABORATORY DATA: CBC: White count 12.2, within normal range upon arrival. He has had steroids likely a steroid reaction. Hemoglobin 14.9, hematocrit 43.6, platelets 263. Chemistry shows a sodium of 137, potassium 4.3, chloride 99, bicarbonate 26.8, BUN 13, creatinine 0.9, glucose 252. D-dimer 0.29. ABG: pH 7.4, pCO2 45, pO2 68, bicarbonate 28.2. Chest x-ray: No acute cardiopulmonary HISTORY AND PHYSICAL [id number] LEOBARDO MEJIA process. ASSESSMENT AND PLAN: Acute exacerbation of COPD. The patient had excellent improvement in symptoms with BiPAP. We will consult his research manager, Dr. Daily, supportive care. Discharge planning when cleared by pulmonology. We will resume his home medications. TRANSINT:[id number] Voice Confirmation ID: [id number] DOCUMENT ID: [id number] CRISTHIAN PRADO DO at 1007 CC: [id number] DICTATION DATE: 04/07/18803 JAVA J2EE ARCHITECT: 04/07/18 09 ADM IN [place] [address] [place] [id number]
[~2018-04-06 16:41] MED LIST changes: +BENZONATATE200 MG PO; +BUSPIRONE HCL30 MG PO; +COMBIVENT RESPIM4 GM INH; +KLONOPIN1 MG PO; +Nicoderm [PBKC] TRANSDERM; +PREDNISONE10 MG PO; +PROAIR INH
[2018-04-06 17:04] LABS: BASOPHILS 0.5 % (0-2); EOSINOPHILS 3.9 % (0-7); HEMATOCRIT 43.8 % (42.0-54.0); HEMOGLOBIN 15.5 g/dL (13.5-17.5); IMMATURE GRANULOCYTES 0.4 % (0-5); MCH 35.6 pg (26.0-34.0); MCHC 35.4 g/dL (31.0-37.0); MCV 100.7 fL (80.0-100.0); MEAN PLATELET VOLUME 10.3 fL (7.4-10.4); MONOCYTES 10.5 % (2-11); NEUTROPHILS 58.7 % (40-80); RBC 4.35 10x6/uL (4.20-6.10); RDW 12.5 % (11.5-14.5); WBC 11.3 10x3/uL (4.8-10.8)
[2018-04-06 17:06] LABS: PLATELET COUNT 256 10x3/uL (130-400)
[2018-04-06 17:11] VITALS: BP 120/089
[2018-04-06 17:27] LABS: ALKALINE PHOSPHATASE 59 U/L (46-116); ALT (SGPT) 37 U/L (10-68); BILIRUBIN - TOTAL 0.31 mg/dL (0.2-1.3); CALC OSMOLALITY 275 mosm/kg (275-300); CALCIUM 9.3 mg/dL (8.5-10.1); CARBON DIOXIDE 29.9 mmol/L (21.0-32.0); CHLORIDE - SERUM 97 mmol/L (98-107); CREATININE - SERUM 0.9 mg/dL (0.6-1.3); GLUCOSE 145 mg/dL (74-106); POTASSIUM - SERUM 3.9 mmol/L (3.5-5.1); PROTEIN - SERUM 7.6 g/dL (6.4-8.2); SODIUM 137 mmol/L (136-145); UREA NITROGEN 10 mg/dL (7-18); eGFR NON AFRICAN AMERICAN > 90 mL/min (90-120)
[2018-04-06 17:35] LABS: PRO BNP 22 pg/mL (0-125)
[2018-04-06 19:45] VITALS: BP 147/99
[2018-04-06 23:45] VITALS: BP 128/95
[2018-04-07 03:55] VITALS: BP 129/87
[2018-04-07 05:03] LABS: BASOPHILS 0.1 % (0-2); EOSINOPHILS 0.1 % (0-7); HEMATOCRIT 43.6 % (42.0-54.0); HEMOGLOBIN 14.9 g/dL (13.5-17.5); IMMATURE GRANULOCYTES 0.2 % (0-5); LYMPHOCYTES 5.2 % (15-50); MCH 34.7 pg (26.0-34.0); MCHC 34.2 g/dL (31.0-37.0); MCV 101.6 fL (80.0-100.0); MEAN PLATELET VOLUME 10.6 fL (7.4-10.4); MONOCYTES 1.6 % (2-11); NEUTROPHILS 92.8 % (40-80); PLATELET COUNT 263 10x3/uL (130-400); RBC 4.29 10x6/uL (4.20-6.10); RDW 12.6 % (11.5-14.5); WBC 12.2 10x3/uL (4.8-10.8)
[2018-04-07 05:29] LABS: CALC OSMOLALITY 282 mosm/kg (275-300); CALCIUM 9.6 mg/dL (8.5-10.1); CARBON DIOXIDE 26.8 mmol/L (21.0-32.0); CHLORIDE - SERUM 99 mmol/L (98-107); CREATININE - SERUM 0.9 mg/dL (0.6-1.3); GLUCOSE 252 mg/dL (74-106); POTASSIUM - SERUM 4.3 mmol/L (3.5-5.1); SODIUM 137 mmol/L (136-145); UREA NITROGEN 13 mg/dL (7-18); eGFR NON AFRICAN AMERICAN > 90 mL/min (90-120)
[2018-04-07 08:09] VITALS: BP 139/84
[2018-04-07 10:15] VITALS: Ht 180.3 cm; Wt 101.3 kg
[2018-04-07 12:58] VITALS: BP 165/96
[2018-04-07] MEDS ORDERED: VIBRAMYCIN 100100 MG PO (17:03)
[2018-04-07] MEDS ORDERED: STERAPRED DS 1010 MG (17:05)
== END 2018-04-07 18:05 | disposition home or self-care (01) | DRG 192 ==
LOC: D.ER 16:41 → D.M2 18:50 → D.EDHOLD 18:50 → D.M2 19:43
PROVIDERS: Family Medicine
PROC: 5A09457 Assistance with Respiratory Ventilation, 24-96 Consecutive Hours, Continuous Positive Airway Pressure (ICD-10-PCS; principal; 2018-04-06)
DX: J44.1 Chronic obstructive pulmonary disease with (acute) exacerbation (principal); E66.9 Obesity, unspecified; F41.9 Anxiety disorder, unspecified; F32.9 Major depressive disorder, single episode, unspecified; E11.9 Type 2 diabetes mellitus without complications; I10 Essential (primary) hypertension; Z72.0 Tobacco use

== ENCOUNTER 2018-05-20 04:11 | Inpatient (IN) | payer MEDICAID ==
[~2018-05-20] VITALS: Ht 180.3 cm; Wt 135.2 kg
[2018-05-20] VITALS (8 sets, daily range): BP systolic 107–152; BP diastolic 77–97; BMI 41.6
[~2018-05-20 04:11] MED LIST changes: +STERAPRED DS 1010 MG; +VIBRAMYCIN 100100 MG PO
[2018-05-20 04:46] LABS: BASOPHILS 0.7 % (0-2); EOSINOPHILS 2.9 % (0-7); HEMATOCRIT 45.2 % (42.0-54.0); HEMOGLOBIN 15.5 g/dL (13.5-17.5); IMMATURE GRANULOCYTES 0.2 % (0-5); LYMPHOCYTES 21.1 % (15-50); MCH 36.2 pg (26.0-34.0); MCHC 34.3 g/dL (31.0-37.0); MCV 105.6 fL (80.0-100.0); MONOCYTES 11.5 % (2-11); NEUTROPHILS 63.6 % (40-80); PLATELET COUNT 282 10x3/uL (130-400); RBC 4.28 10x6/uL (4.20-6.10); WBC 9.4 10x3/uL (4.8-10.8)
[2018-05-20 05:05] LABS: ALBUMIN 3.6 g/dL (3.4-5.0); ALKALINE PHOSPHATASE 80 U/L (46-116); ALT (SGPT) 46 U/L (10-68); BILIRUBIN - TOTAL 0.44 mg/dL (0.2-1.3); CALC OSMOLALITY 276 mosm/kg (275-300); CALCIUM 9.3 mg/dL (8.5-10.1); CARBON DIOXIDE 29.3 mmol/L (21.0-32.0); CHLORIDE - SERUM 101 mmol/L (98-107); CREATININE - SERUM 0.8 mg/dL (0.6-1.3); GLUCOSE 179 mg/dL (74-106); POTASSIUM - SERUM 4.6 mmol/L (3.5-5.1); SODIUM 137 mmol/L (136-145); UREA NITROGEN 11 mg/dL (7-18); eGFR NON AFRICAN AMERICAN > 90 mL/min (90-120)
[2018-05-20 05:12] LABS: LIPASE 146 U/L (73-393); MAGNESIUM - SERUM 1.7 mg/dL (1.8-2.4); PRO BNP 14 pg/mL (0-125)
[2018-05-20 05:16] LABS: TROPONIN-I < 0.017 ng/mL (0.000-0.060)
--- NOTE | 2018-05-20 06:27 | NUR ---
PT IMPROVED RESP EFFORT AT THIS TIME. PT ABLE TO SPEAK FULL SENTENCES. PT STATES FEELS MUCH BETTER. PT PLACED ON NC @4L AT THIS TIME PER MD VERBAL ORDER. PT ALERT AND ORIENTED. WHEEZING STILL NOTED BUT MUCH IMPROVED. REPORT CALL TO AYANNA AT THIS TIME. WILL MONITOR
--- NOTE | 2018-05-20 06:50 | NUR ---
PT ARRIVED TO UNIT VIA WHEELCHAIR ACCOMPANIED BY HOSPITAL STAFF. PT CURRNETLY ON 5LPM O2 WITH AN IV IN RT AND LT HANDS. JONATHAN.
--- NOTE | 2018-05-20 12:15 | NUR ---
PT PULLED OUT IV TO LEFT HAND ACCIDENTALLY. CATH TIP INTACT.
--- NOTE | 2018-05-20 17:53 | NUR ---
DR SPEARS IN TO SEE PT AT THIS TIME.
[2018-05-21] VITALS: BP 141/84
[2018-05-21 03:00] VITALS: BP 136/76
--- NOTE | 2018-05-21 03:44 | NUR ---
I CONCUR WITH POND WORKER ASSESSMENT.
[2018-05-21 07:37] LABS: BASOPHILS 0.1 % (0-2); EOSINOPHILS 0.1 % (0-7); HEMATOCRIT 40.2 % (42.0-54.0); HEMOGLOBIN 13.9 g/dL (13.5-17.5); IMMATURE GRANULOCYTES 0.2 % (0-5); LYMPHOCYTES 11.1 % (15-50); MCH 35.7 pg (26.0-34.0); MCHC 34.6 g/dL (31.0-37.0); MEAN PLATELET VOLUME 10.6 fL (7.4-10.4); MONOCYTES 9.4 % (2-11); NEUTROPHILS 79.1 % (40-80); PLATELET COUNT 280 10x3/uL (130-400); RBC 3.89 10x6/uL (4.20-6.10); RDW 13.2 % (11.5-14.5)
[2018-05-21 07:39] LABS: MCV 103.3 fL (80.0-100.0); WBC 12.8 10x3/uL (4.8-10.8)
[2018-05-21 07:44] LABS: CHLORIDE - SERUM 97 mmol/L (98-107); CREATININE - SERUM 0.9 mg/dL (0.6-1.3); POTASSIUM - SERUM 4.1 mmol/L (3.5-5.1); SODIUM 135 mmol/L (136-145); eGFR NON AFRICAN AMERICAN > 90 mL/min (90-120)
[2018-05-21 07:46] LABS: CALC OSMOLALITY 278 mosm/kg (275-300); GLUCOSE 248 mg/dL (74-106); UREA NITROGEN 14 mg/dL (7-18)
[2018-05-21 09:37] VITALS: BP 126/88
--- NOTE | 2018-05-21 09:42 | NUR ---
MEDICATED FOR ANXIETY AT THIS TIME. NO DISTRESS.
--- NOTE | 2018-05-21 10:54 | HP ---
PATIENT: LEOBARDO MEJIA MEDICAL RECORD: [id number] ACCOUNT: [id number] LOCATION:[facility] D1208 : 67 ADMISSION DATE: 05/20/18 PCP: [facility] HISTORY AND PHYSICAL EXAMINATION DATE OF ADMISSION: 05/20/2018 CHIEF COMPLAINT: Shortness of breath. HISTORY OF PRESENT ILLNESS: This is a 52-year-old white male with chronic obstructive pulmonary disease and asthma. He sees a nurse practitioner at [facility]. He sees Dr. Wright for his pulmonary problems. He has had increased shortness of breath over the last couple of days. He states he seems to be getting more frequent exacerbations. In the ER, he was in respiratory distress and placed on CPAP. ABG on CPAP showed pCO2 of 55 and a pO2 of 90. Chest x-ray shows bibasilar patchy opacities suggestive of pneumonia. He is admitted. PAST MEDICAL AND SURGICAL HISTORY: COPD/asthma, hypertension, diabetes. He gets anxious when he cannot breathe and states he has seizure-like activity when he cannot breathe. PAST SURGICAL HISTORY: Left ankle fusion and tonsillectomy. ALLERGIES: ELAVIL, ANTABUSE, AND HALDOL (CAUSES SEIZURES). HOME MEDICATIONS: ProAir HFA 2 puffs every 4 to 6 hours as needed; fenofibrate daily; Mevacor, uncertain dose once a day for cholesterol; lisinopril/hydrochlorothiazide 20/25 once a day; buspirone 30 mg twice a day; Tessalon 200 mg t.i.d. p.r.n. cough; metformin XR 500 mg twice a day. He states he takes Klonopin when he is in the hospital and that helps with his anxiety. FAMILY HISTORY: Heart disease and cancer in his parents. HABITS: He continues to smoke. He drinks a couple of beers every morning. Denies illicit drug use. SOCIAL HISTORY: He is . He is on disability for his lungs. He used to work as an motor electrician. REVIEW OF SYSTEMS: GENERAL: No major weight changes. HEENT: No particular sinus or allergy problems. RESPIRATORY: See above history. CARDIAC: No history of heart disease. GASTROINTESTINAL: No diarrhea, constipation or reflux. GENITOURINARY: No significant problems there. MUSCULOSKELETAL: He had a left ankle fusion and has occasional aches and pains from that. NEUROLOGIC: No migraine headaches. Again, the seizures that are talked about seemed to be when he is struggling for breath. PSYCHIATRIC: He has some anxiety when he gets short of breath. PHYSICAL EXAMINATION: VITAL SIGNS: Temperature 98.2, pulse 96, respirations 18, blood pressure HISTORY AND PHYSICAL [id number] LEOBARDO MEJIA 115/83, O2 sat 94% on 2 liters. GENERAL: He is sitting in bed and appears in no acute distress at this time. HEENT: Grossly within normal limits. NECK: Supple. No bruit. HEART: Regular rate and rhythm. LUNGS: Diffuse wheeze. Distal airway sounds, some rales in the bases. ABDOMEN: Soft, obese. EXTREMITIES: No edema. NEUROLOGIC: Intact. LABORATORY DATA: A pH 7.357, pCO2 55, pO2 90, O2 sat 96% on CPAP. Basic metabolic panel is all okay. Glucose is a little high at 179. Liver functions are all okay. D-dimer is normal. Lactic acid is 1.4. CBC with a white count 9400, hemoglobin 15.5, MCV 105, platelets number 282,000. Troponin less than 0.017. IMAGING: Chest x-ray shows bibasilar patchy opacities, atelectasis versus pneumonia. ASSESSMENT: 1. Acute bacterial pneumonia. 2. Chronic obstructive pulmonary disease exacerbation. 3. Diabetes. PLAN: Respiratory care. Antibiotics. We will ask pulmonary to see him. Other tests and procedures as warranted. TRANSINT:[id number] Voice Confirmation ID: [id number] DOCUMENT ID: [id number] LUIGI ASKEW MD at 1054 CC: [id number] DICTATION DATE: 05/20/18 1534 LEVEL VIAL CURVATURE GAUGER: 05/20/18 1603 ADM IN [facility] [address] [place] [address]
--- NOTE | 2018-05-21 11:40 | NUR ---
FSBS 221. 4 UNITS ADMINISTERED PER SLIDING SCALE. NO DISTRESS.
[2018-05-21 13:00] VITALS: BP 126/89
--- NOTE | 2018-05-21 14:41 | NUR ---
PATIENT GETTING OOB TO AMBULATE IN HALLWAY AT THIS TIME. NO DISTRESS. IV FLUIDS INFUSING KVO.
[2018-05-21 15:12] VITALS: BP 145/86
--- NOTE | 2018-05-21 16:58 | NUR ---
FSBS 204. 4 UNITS HUMULIN ADMINISTERED PER SLIDING SCALE. NO DISTRESS.
[2018-05-21 19:00] VITALS: BP 123/83
--- NOTE | 2018-05-21 19:30 | NUR ---
RECEIVED REPORT, ASSUMED CARE, A&O, DENIES NEEDS, NO S/S OF DISTRESS NOTED, O2 5L NC, CALL LIGHT IN REACH, BED LOWEST POSITION, WILL CONTINUE POC
[2018-05-22] VITALS: BP 151/96
[2018-05-22 03:00] VITALS: BP 130/89
--- NOTE | 2018-05-22 03:18 | NUR ---
I AGREE WITH BURGLAR ALARM OPERATOR ASSESSMENT. WILL CONTINUE TO MONITOR.
[2018-05-22 08:00] VITALS: BP 151/96
[2018-05-22 09:46] LABS: BASOPHILS 0.1 % (0-2); EOSINOPHILS 0 % (0-7); HEMATOCRIT 39.7 % (42.0-54.0); HEMOGLOBIN 13.3 g/dL (13.5-17.5); IMMATURE GRANULOCYTES 0.2 % (0-5); LYMPHOCYTES 7.9 % (15-50); MCH 35.2 pg (26.0-34.0); MCHC 33.5 g/dL (31.0-37.0); MEAN PLATELET VOLUME 10.5 fL (7.4-10.4); MONOCYTES 5.1 % (2-11); NEUTROPHILS 86.7 % (40-80); PLATELET COUNT 277 10x3/uL (130-400); RBC 3.78 10x6/uL (4.20-6.10); WBC 12.4 10x3/uL (4.8-10.8)
[2018-05-22 10:00] LABS: CALCIUM 8.9 mg/dL (8.5-10.1); CARBON DIOXIDE 25.8 mmol/L (21.0-32.0); CHLORIDE - SERUM 96 mmol/L (98-107); CREATININE - SERUM 1.1 mg/dL (0.6-1.3); SODIUM 135 mmol/L (136-145); eGFR NON AFRICAN AMERICAN 75 mL/min (90-120)
[2018-05-22 10:01] LABS: CALC OSMOLALITY 289 mosm/kg (275-300); GLUCOSE 398 mg/dL (74-106); UREA NITROGEN 20 mg/dL (7-18)
[2018-05-22 12:00] VITALS: BP 140/86
--- NOTE | 2018-05-22 15:12 | NUR ---
PT AOX4 RESP EVEN AND NONLABORED PT DENIES NEEDS AT THIS TIME WILL CONTINUE TO MONITOR
[2018-05-22 15:36] VITALS: Ht 180.3 cm; Wt 135.2 kg
[2018-05-22 16:00] VITALS: BP 125/73
[2018-05-22 20:00] VITALS: BP 112/61
--- NOTE | 2018-05-22 20:06 | NUR ---
REST IN BED, CALL LIGHT IN REACH.
[2018-05-23] VITALS: BP 116/67
--- NOTE | 2018-05-23 02:13 | NUR ---
REST QUIETLY IN BED, RESP EVEN NO DISTRESS, CALL LIGHT IN REACH.
--- NOTE | 2018-05-23 02:38 | NUR ---
REST QUIETLY IN BED, CALL LIGHT IN REACH.
--- NOTE | 2018-05-23 03:57 | NUR ---
PT IV INFILTRATED, RESTARTED IV LEFT FOREARM.
[2018-05-23 04:00] VITALS: BP 107/86
[2018-05-23 06:38] LABS: BASOPHILS 0.1 % (0-2); EOSINOPHILS 0 % (0-7); HEMATOCRIT 41.9 % (42.0-54.0); IMMATURE GRANULOCYTES 0.2 % (0-5); LYMPHOCYTES 7.8 % (15-50); MCH 35.6 pg (26.0-34.0); MCHC 33.4 g/dL (31.0-37.0); MCV 106.6 fL (80.0-100.0); MEAN PLATELET VOLUME 10.6 fL (7.4-10.4); MONOCYTES 3.8 % (2-11); NEUTROPHILS 88.1 % (40-80); PLATELET COUNT 274 10x3/uL (130-400); RBC 3.93 10x6/uL (4.20-6.10); RDW 13.3 % (11.5-14.5); WBC 12.5 10x3/uL (4.8-10.8)
[2018-05-23 07:27] LABS: CALC OSMOLALITY 281 mosm/kg (275-300); CALCIUM 9.6 mg/dL (8.5-10.1); CARBON DIOXIDE 23.9 mmol/L (21.0-32.0); CHLORIDE - SERUM 96 mmol/L (98-107); GLUCOSE 321 mg/dL (74-106); POTASSIUM - SERUM 4.8 mmol/L (3.5-5.1); SODIUM 133 mmol/L (136-145); UREA NITROGEN 24 mg/dL (7-18); eGFR NON AFRICAN AMERICAN 84 mL/min (90-120)
[2018-05-23 07:55] VITALS: BP 136/83
[2018-05-23] MEDS ORDERED: VIBRAMYCIN 100100 MG PO (08:44)
[2018-05-23] MEDS ORDERED: MEDROL DOSE PACK4 MG PO (08:46)
[2018-05-23] MEDS ORDERED: KLONOPIN1 MG PO (08:47)
--- NOTE | 2018-05-23 09:54 | MORECARE ---
CASE MANAGEMENT DISCHARGE SUMMARY PATIENT: LEOBARDO MEJIA UNIT: [id number] ADM DATE: 05/20/18 AGE: 52 : 67 SEX: M ROOM/BED: D.1208 AUTHOR: SHERIE RUELAS PHYSICIAN: REFERRING PHYSICIAN: LUIGI ASKEW MD DATE OF SERVICE: 05/23/18 Discharge Plan Patient Name: LEOBARDO MEJIA [facility] [facility] 1965 Planned Disposition: Home Anticipated Discharge Date: 05/23/18 Discharge Date: Expected LOS: 3 Initial Reviewer: [email or web address] Initial Review Date: 05/23/2018 Generated: 05/23/18 10:54 am Patient Name: LEOBARDO MEJIA Page 28069 at 0954 All edits/amendments must be made on the electronic document DICTATION DATE: 05/23/18952 SUBMARINE CABLE EQUIPMENT TECHNICIAN: TIM 05/23/1853 RPT#: [id number] DC DATE: STATUS: ADM IN [facility] [address] [place] [address] END OF REPORT
--- NOTE | 2018-05-23 10:01 | MORECARE ---
CASE MANAGEMENT DISCHARGE SUMMARY PATIENT: LEOBARDO MEJIA UNIT: [id number] ADM DATE: 05/20/18 AGE: 52 : 67 SEX: M ROOM/BED: D.1208 AUTHOR: JESSENIA,DOC PHYSICIAN: REFERRING PHYSICIAN: LUIGI ASKEW MD DATE OF SERVICE: 05/23/18 Discharge Plan Patient Name: LEOBARDO MEJIA Facility: [facility]:[place] : 1965 Planned Disposition: Home Anticipated Discharge Date: 05/23/18 Discharge Date: Expected LOS: 3 Initial Reviewer: [email or web address] Initial Review Date: 05/23/2018 Generated: 05/23/18 11:01 am Comments DCP- Discharge Planning Updated by [email or web address]: Zaria Rahman on 05/23/18 8:[address] Patient Name: LEOABRDO MEJIA Admission Status: ER Accout number: [id number] Admission Date: 05-20-2018 : 1965 Admission Diagnosis: Attending: LUIGI ASKEW Current LOS: 3 Anticipated DC Date: 05-23-2018 Planned Disposition: Home Primary Insurance: [place]ICAID [place] Discharge Planning Comments: CM met with patient about discharge planning / needs. Patient denies need for home health or other community resources. States he gets personal care through "[facility]". States his aide, Kerri will transport him home upon hospital discharge ([phone]). States his home environment is safe. Denies any discharge planning needs or concerns at this time. CM will continue to follow and assist as needed with discharge planning / needs. Clinical Medical Assistant: Zaria Rahman DCPIA - Discharge Planning Initial Assessment Updated by [email or web address]: Zaria Rahman on 05/23/18 9:56 am * Is the patient Alert and Oriented? Yes * How many steps to enter\\exit or inside your home? * PCP [facility] * Pharmacy [facility] [address] * Preadmission Environment Home with Family * ADLs Partial Dependent * Partial ADLs (Assistance needed) Bathing Dressing * Equipment Glucometer Nebulizer Oxygen * Other Equipment [facility] provides Oxygen * List name and contact numbers for known caregivers / representatives who currently or will assist patient after discharge: Daniella Mejia, spouse, Kerri Lombardo, personal fitness manager, * Verbal permission to speak to the caregivers and representatives has been obtained from the patient. N/A * Community resources currently utilized Other * Please name any agencies selected above. Personal Care provide through "[facility]" * Additional services required to return to the preadmission environment? No * Can the patient safely return to the preadmission environment? Yes * Has this patient been hospitalized within the prior 30 days at any hospital? No Last DP export: 05/23/18 8:54 a Patient Name: LEOBARDO MEJIA Page 32062 at 1001 All edits/amendments must be made on the electronic document DICTATION DATE: 05/23/18 1000 TOOLS DEVELOPER: TIM 05/23/18 1000 RPT#: [id number] DC DATE: STATUS: ADM IN [facility] [address] [place] [address] END OF REPORT
--- NOTE | 2018-05-23 10:15 | NUR ---
PT DC HOME, WENT OVER MEDS AND FOLLOW UP APPOINTMENT. ALL QUESTIONS ANSWERED
--- NOTE | 2018-05-24 09:48 | MORECARE ---
CASE MANAGEMENT DISCHARGE SUMMARY PATIENT: LEOBARDO MEJIA UNIT: [id number] ADM DATE: 05/20/18 AGE: 52 : 67 SEX: M ROOM/BED: D.1208 AUTHOR: JESSENIADOC PHYSICIAN: REFERRING PHYSICIAN: LUIGI ASKEW MD DATE OF SERVICE: 05/24/18 Discharge Plan Patient Name: LEOBARDO MEJIA Facility: [facility]:[place] : 1965 Planned Disposition: Home Anticipated Discharge Date: 05/23/18 Discharge Date: 05/23/2018 Expected LOS: 3 Initial Reviewer: [email or web address] Initial Review Date: 05/23/2018 Generated: 05/24/18 10:48 am Comments DCP- Discharge Planning Updated by [email or web address]: Zaria Rahman on 05/23/18 8:[address] Patient Name: LEOBARDO MEJIA Admission Status: ER Accout number: [id number] Admission Date: 05-20-2018 : 1965 Admission Diagnosis: Attending: LUIGI ASKEW Current LOS: 3 Anticipated DC Date: 05-23-2018 Planned Disposition: Home Primary Insurance: MEDICAID [place] Discharge Planning Comments: CM met with patient about discharge planning / needs. Patient denies need for home health or other community resources. States he gets personal care through "[facility]". States his aide, Kerri will transport him home upon hospital discharge ([phone]). States his home environment is safe. Denies any discharge planning needs or concerns at this time. CM will continue to follow and assist as needed with discharge planning / needs. Timber Girdler: Zaria Rahman DCPIA - Discharge Planning Initial Assessment Updated by [email or web address]: Zaria Rahman on 05/23/18 9:56 am * Is the patient Alert and Oriented? Yes * How many steps to enter\\exit or inside your home? * PCP [facility] * Pharmacy [facility] [address] * Preadmission Environment Home with Family * ADLs Partial Dependent * Partial ADLs (Assistance needed) Bathing Dressing * Equipment Glucometer Nebulizer Oxygen * Other Equipment [facility] provides Oxygen * List name and contact numbers for known caregivers / representatives who currently or will assist patient after discharge: Daniella Mejia, spouse, Kerri Lombardo, laundry housekeeping aide, * Verbal permission to speak to the caregivers and representatives has been obtained from the patient. N/A * Community resources currently utilized Other * Please name any agencies selected above. Personal Care provide through "[facility]" * Additional services required to return to the preadmission environment? No * Can the patient safely return to the preadmission environment? Yes * Has this patient been hospitalized within the prior 30 days at any hospital? No Last DP export: 05/23/18 9:01 a Patient Name: SAM MEJIAN Page 36609 at 0948 All edits/amendments must be made on the electronic document DICTATION DATE: 05/24/18946 HEAD INSULATION BOARD SAW OPERATOR: TIM 05/24/18946 RPT#: [id number] DC DATE:05/23/18 STATUS: DIS IN [facility] [address] [place] [address] END OF REPORT
--- NOTE | 2018-05-24 16:42 | CN ---
PATIENT NAME:LEOBARDO MEJIA MEDICAL RECORD: [id number] : 67 LOCATION:D.M3 D.1208 ADMIT DATE: 05/20/18 ACCOUNT: [id number] CONSULTING PHYSICIAN: ANNA SPEARS MD REFERRING PHYSICIAN: LUIGI ASKEW MD DATE OF CONSULTATION: 05/20/2018 CONSULT REQUESTING PHYSICIAN: Dr. Luigi Askew. REASON FOR CONSULTATION: Pneumonia, acute exacerbation of chronic obstructive pulmonary disease. HISTORY OF PRESENT ILLNESS: Mr. Mejia is a 52-year-old gentleman who has a history of COPD and asthma. He usually follows at [facility] [place]. The patient was admitted early this morning with worsening shortness of breath, coughing and wheezing. Recently, his was sick as well. REVIEW OF SYSTEMS: As in history of present illness. PAST MEDICAL HISTORY: 1. COPD. 2. Asthma. 3. Asthma-COPD overlap syndrome. 4. Diabetes mellitus. 5. History of seizure disorder. PAST SURGICAL HISTORY: 1. T&A. 2. Left knee fusion surgery. ALLERGIES: HE IS ALLERGIC TO AMITRIPTYLINE, ANTABUSE AND HALDOL. MEDICATIONS: [employer] is reviewed. PERSONAL AND SOCIAL HISTORY: Most likely, the patient is still smoking. FAMILY HISTORY: Noncontributory. PHYSICAL EXAMINATION: GENERAL: Now, the patient is lying comfortably in bed. He is not in acute distress. VITAL SIGNS: The blood pressure is 107/77, pulse is 101, respiration is 18, temperature is 98.2, SpO2 is 97% on 2 liters nasal cannula. HEENT: Conjunctivae are pink. Sclerae are not icteric. NECK: Supple, no JVD. CHEST: The chest excursion is minimal on both sides, wheezes on forceful expiration. HEART: Rhythm regular, normal sound, no murmur. ABDOMEN: Soft, bowel sounds present. No hepatosplenomegaly. RECTAL: Deferred. EXTREMITIES: No cyanosis, no clubbing, no pedal edema. CENTRAL NERVOUS SYSTEM: The patient is awake and alert. There are no obvious cranial nerve abnormality. The gait was not tested. CHEST RADIOGRAPH: There is bibasilar infiltrate. CONSULT REPORT [id number] LEOBARDO MEJIA OTHER LABORATORY DATA: CBC: WBC is 9.4, hemoglobin 15.5, hematocrit 45.2, the platelet count is 282. LABORATORY DATA: Chemistry: ABG on admission, the pH is 7.35, pCO2 is 55.3, the pO2 is 90, bicarb is 31. IMPRESSION: 1. Acute exacerbation of chronic obstructive pulmonary disease. 2. Vvaso-eh-wqdmket hypoxic respiratory failure. 3. Bibasilar pneumonia. 4. Asthma. 5. Acute cough. RECOMMENDATION: 1. Adjust the dose of methylprednisolone IV. 2. Doxycycline and cefepime IV. 3. Brovana/budesonide nebulizer. 4. Albuterol/ipratropium nebulizer. 5. Supplemental oxygen. 6. Check alpha-1 level. 7. Follow up labs and chest radiograph. Dr. Askew, thank you for involving me in the care of Mr. Mejia. TRANSINT:[id number] Voice Confirmation ID: [id number] DOCUMENT ID: [id number] ANNA SPEARS MD at 1642 CC: [id number] DICTATION DATE: 05/20/18 180 CASE MANAGER: 05/21/18 0045 DIS IN 05/23/18 [place] [id number] [place] [address]
[2018-05-25 20:09] LABS: IGG SUBCLASS 1 389 mg/dL (248-810); IGG SUBCLASS 2 57 mg/dL (130-555); IGG SUBCLASS 3 15 mg/dL (15-102); IGG SUBCLASS 4 3 mg/dL (2-96); IMMUNOGLOBULIN G 479 mg/dL (700-1600)
== END 2018-05-23 10:00 | disposition home or self-care (01) | DRG 193 ==
LOC: D.ER 04:11 → OBSVTIME 05:26 → D.EDHOLD 05:26 → D.M3 05:49
PROVIDERS: Family Medicine; Internal Medicine Pulmonary Disease; ADMIT Family Medicine
DX: J18.9 Pneumonia, unspecified organism (principal); J96.21 Acute and chronic respiratory failure with hypoxia; J44.1 Chronic obstructive pulmonary disease with (acute) exacerbation; J44.0 Chronic obstructive pulmonary disease with (acute) lower respiratory infection; J98.11 Atelectasis; Z68.41 Body mass index [BMI] 40.0-44.9, adult; K21.9 Gastro-esophageal reflux disease without esophagitis; E66.9 Obesity, unspecified; E11.9 Type 2 diabetes mellitus without complications; D64.9 Anemia, unspecified

== ENCOUNTER → 2018-08-21 09:19 | Outpatient (CLI) | payer MEDICAID ==
[2018-05-22 15:36] VITALS: BMI 41.5
== END | disposition home or self-care (01) ==
LOC: D.RAD 08-14 10:00
PROVIDERS: ATTEND Internal Medicine Gastroenterology
DX: Z12.11 Encounter for screening for malignant neoplasm of colon (principal); K59.04 Chronic idiopathic constipation

== ENCOUNTER → 2019-09-28 11:32 | Outpatient (CLI) | payer MEDICAID ==
[2018-05-22 15:36] VITALS: BMI 41.5
== END | disposition home or self-care (01) ==
LOC: D.RT 11:30
PROVIDERS: ATTEND Internal Medicine Pulmonary Disease
DX: J44.9 Chronic obstructive pulmonary disease, unspecified (principal)